=== PATIENT | male | born 1980 | race Caucasian/White ===

== ENCOUNTER 2023-03-13 15:19 | Emergency (ER) | payer OTHER ==
[~2023-03-13] VITALS: Ht 157.5 cm; Wt 74.0 kg
[2023-03-13 15:26] VITALS: O2SAT 99
[2023-03-13] MEDS ORDERED: TOPUD MT (19:03)
[2023-03-13] MEDS ORDERED: AMOX-494 MT (19:03)
[2023-03-13] MEDS ORDERED: IBUP-1525 MT (19:03)
[2023-03-13 19:12] VITALS: BP 118/75; PULSE 87; RESP 19; TEMP 98.3
== END 2023-03-13 19:15 | disposition home or self-care (01) ==
LOC: ER 15:19
DX: H92.01 Otalgia, right ear (principal); R50.9 Fever, unspecified; J02.9 Acute pharyngitis, unspecified; Z98.890 Other specified postprocedural states
CPT/HCPCS: 99281